=== PATIENT | male | born 1970 | race Caucasian/White ===

== ENCOUNTER 2019-01-27 00:15 | Inpatient (IN) | payer MEDICAID ==
[~2019-01-27] VITALS: Ht 167.6 cm; Wt 73.6 kg
[2019-01-27] MEDS ORDERED: AZITHROMYCIN 500 MG in SODIUM CHLORIDE 0.9% 250 ML IV ONE (00:30)
[2019-01-27] MEDS ORDERED: ALBUTEROL/IPRATROPIUM 2.5MG/0.5MG, 3 ML NPPB ONE (00:30)
[2019-01-27] MEDS ORDERED: SODIUM CHLORIDE 0.9% 1,000ML IVBOLUS ONE (00:30)
[2019-01-27] MEDS ORDERED: MAGNESIUM SULFATE PMX 2GM/50ML 50 ML IVPB ONE (00:30)
[2019-01-27] MEDS ORDERED: ALBUTEROL/IPRATROPIUM 2.5MG/0.5MG, 3 ML ONE (00:31)
[2019-01-27] MEDS ORDERED: methylPREDNISolone SOD SUCC 125 MG/2 ML ONE (00:50)
[2019-01-27] MEDS ORDERED: MAGNESIUM SULFATE PMX 2GM/50ML 50 ML ONE (00:50)
[2019-01-27 01:00] LABS: BASOPHILS # (AUTO) 0.02 x10^3/uL (0-0.1); BASOPHILS % (AUTO) 0 % (0-1); EOSINOPHILS # (AUTO) 0.52 x10^3/uL (0-0.4); EOSINOPHILS % (AUTO) 6 % (1-7); LYMPHOCYTES # (AUTO) 2.71 x10^3/uL (1-3.4); LYMPHOCYTES % (AUTO) 29 % (22-44); MD NO; MEAN CORPUSCULAR HEMOGLOBIN 30.2 pg (27.5-34.5); MEAN CORPUSCULAR VOLUME 91.4 fL (81-97); MEAN PLATELET VOLUME 7.8 fL (7.4-10.4); MONOCYTES # (AUTO) 0.78 x10^3/uL (0.2-0.8); MONOCYTES % (AUTO) 8 % (2-9); NEUTROPHILS # (AUTO) 5.31 x10^3/uL (1.8-6.8); NEUTROPHILS % (AUTO) 57 % (42-75); PLATELET COUNT 280 x10^3/uL (130-400); RED BLOOD COUNT 5.09 x10^6/uL (4.38-5.82); RED CELL DISTRIBUTION WIDTH 14.5 % (9.4-14.8)
[2019-01-27] MEDS ORDERED: methylPREDNISolone SOD SUCC 125 MG/2 ML IVPush ONE (01:00)
[2019-01-27] MEDS ORDERED: ALBUTEROL 0.5%, 20ML ONE (01:09)
[2019-01-27 01:10] LABS: ALBUMIN 3.8 g/dL (3.4-5.0); ANION GAP 3 mmol/L (5-15); CALCIUM 8.4 mg/dL (8.5-10.1); CHLORIDE 110 mmol/L (98-107); CREATININE 0.92 mg/dL (0.7-1.3)
--- NOTE | 2019-01-27 01:11 | NUR ---
PT FROM TRIAGE WITH LABOURED RESP, NEB BY RT PIV PLACED MEDS GIVEN PER MD ORDER REPORT TO ANAND SHANKAR
--- NOTE | 2019-01-27 02:36 | NUR ---
ASSUMING CARE OF PT AT THIS TIME. PT IS ASLEEP IN [facility] WITH NO ACUTE DISTRESS NOTED. VSS AT THIS TIME.
--- NOTE | 2019-01-27 03:18 | NUR ---
TP: toya at [facility] and jakob at [facility] both refused transfer of pt at their facilities.
[2019-01-27] MEDS ORDERED: ONDANSETRON 2MG/ML, 2ML IVPush PRN (03:30)
--- NOTE | 2019-01-27 03:35 | NUR ---
REPORT OF PT CALLED TO RAAD PE[facility]A. ALL QUESTIONS ANSWERED. TECH PAGED FOR TRANSPORT OF PT FROM ER TO FLOOR.
[2019-01-27 04:02] VITALS: BP 143/93
[2019-01-27] MEDS ORDERED: MONT4GRA PO (04:19)
[2019-01-27] MEDS ORDERED: ALBU1.25 NEB (04:21)
[2019-01-27 04:45] LABS: RAPID INFLUENZA A Negative (Negative); RAPID INFLUENZA B Negative (Negative)
[2019-01-27] MEDS ORDERED: ACETAMINOPHEN 325 MG TABLET ONE (04:46)
[2019-01-27] MEDS: ACETAMINOPHEN 325 MG TABLET PO PRN ×2 (04:48→11:16)
[2019-01-27] MEDS: ALBUTEROL/IPRATROPIUM 2.5MG/0.5MG, 3 ML NPPB SCH ×5 (06:00→21:55)
[2019-01-27] MEDS ORDERED: GUAIFENESIN 200 MG TABLET ONE (07:46)
[2019-01-27] MEDS: GUAIFENESIN 200 MG TABLET PO SCH ×4 (07:50→20:02)
[2019-01-27 08:14] VITALS: BP 146/75
[2019-01-27 08:40] LABS: AMPHETAMINE SCREEN, URINE Negative (Negative); BARBITURATE SCREEN, URINE Negative (Negative); BENZODIAZEPINE SCREEN, URINE Negative (Negative); CANNABINOID SCREEN, URINE Negative (Negative); COCAINE SCREEN, URINE Negative (Negative); METHADONE SCREEN, URINE Negative (Negative); OPIATE SCREEN, URINE Negative (Negative)
[2019-01-27 09:40] LABS: HCT (SEDRATE) 44.5 % (39.2-51.8)
[2019-01-27 13:51] VITALS: BP 152/81
[2019-01-27 19:46] VITALS: BP 131/69
[2019-01-27] MEDS: MONTELUKAST 10 MG TABLET PO SCH (20:02)
[2019-01-28 01:25] VITALS: BP 140/81
[2019-01-28] MEDS: ALBUTEROL/IPRATROPIUM 2.5MG/0.5MG, 3 ML NPPB SCH ×6 (02:11→22:00)
[2019-01-28] MEDS: AZITHROMYCIN 500 MG in SODIUM CHLORIDE 0.9% 250 ML IV SCH (02:20)
[2019-01-28] MEDS: ALBUTEROL/IPRATROPIUM 2.5MG/0.5MG, 3 ML NPPB PRN (03:45)
[2019-01-28 03:57] LABS: BASOPHILS # (AUTO) 0.03 x10^3/uL (0-0.1); BASOPHILS % (AUTO) 0 % (0-1); EOSINOPHILS # (AUTO) 0.07 x10^3/uL (0-0.4); EOSINOPHILS % (AUTO) 1 % (1-7); LYMPHOCYTES % (AUTO) 14 % (22-44); MD NO; MEAN CORPUSCULAR HEMOGLOBIN 29.7 pg (27.5-34.5); MEAN CORPUSCULAR HGB CONC 32.5 g/dL (33.2-36.2); MEAN CORPUSCULAR VOLUME 91.3 fL (81-97); MONOCYTES # (AUTO) 0.89 x10^3/uL (0.2-0.8); MONOCYTES % (AUTO) 6 % (2-9); NEUTROPHILS # (AUTO) 12.07 x10^3/uL (1.8-6.8); NEUTROPHILS % (AUTO) 79 % (42-75); PLATELET COUNT 268 x10^3/uL (130-400); RED BLOOD COUNT 4.46 x10^6/uL (4.38-5.82); RED CELL DISTRIBUTION WIDTH 14.5 % (9.4-14.8)
[2019-01-28 04:06] LABS: ANION GAP 7 mmol/L (5-15); CALCIUM 8.1 mg/dL (8.5-10.1); CHLORIDE 111 mmol/L (98-107); CREATININE 0.77 mg/dL (0.7-1.3)
[2019-01-28] MEDS: GUAIFENESIN 200 MG TABLET PO SCH ×4 (06:20→20:30)
[2019-01-28 07:12] VITALS: BP 133/77
[2019-01-28] MEDS ORDERED: AZITHROMYCIN 500 MG in SODIUM CHLORIDE 0.9% 250 ML IV SCH (08:00)
[2019-01-28 13:20] VITALS: BP 145/83
[2019-01-28] MEDS: ACETAMINOPHEN 325 MG TABLET PO PRN (18:21)
[2019-01-28 19:54] VITALS: BP 121/73
[2019-01-28] MEDS: MONTELUKAST 10 MG TABLET PO SCH (20:30)
[2019-01-29 00:52] VITALS: BP 124/76
[2019-01-29] MEDS: AZITHROMYCIN 500 MG in SODIUM CHLORIDE 0.9% 250 ML IV SCH (01:52)
[2019-01-29] MEDS: ALBUTEROL/IPRATROPIUM 2.5MG/0.5MG, 3 ML NPPB SCH ×6 (02:00→22:00)
[2019-01-29] MEDS: GUAIFENESIN 200 MG TABLET PO SCH ×4 (05:11→20:56)
[2019-01-29 07:11] VITALS: BP 129/81
[2019-01-29] MEDS: ACETAMINOPHEN 325 MG TABLET PO PRN ×2 (08:19→16:54)
[2019-01-29] MEDS: ALBUTEROL/IPRATROPIUM 2.5MG/0.5MG, 3 ML NPPB PRN (08:40)
[2019-01-29 09:25] LABS: BASOPHILS # (AUTO) 0.03 x10^3/uL (0-0.1); BASOPHILS % (AUTO) 0 % (0-1); EOSINOPHILS # (AUTO) 0.23 x10^3/uL (0-0.4); EOSINOPHILS % (AUTO) 2 % (1-7); LYMPHOCYTES # (AUTO) 3.39 x10^3/uL (1-3.4); LYMPHOCYTES % (AUTO) 27 % (22-44); MD NO; MEAN CORPUSCULAR HEMOGLOBIN 29.7 pg (27.5-34.5); MEAN CORPUSCULAR HGB CONC 33.3 g/dL (33.2-36.2); MEAN CORPUSCULAR VOLUME 89.3 fL (81-97); MEAN PLATELET VOLUME 7.4 fL (7.4-10.4); MONOCYTES # (AUTO) 0.91 x10^3/uL (0.2-0.8); MONOCYTES % (AUTO) 7 % (2-9); NEUTROPHILS # (AUTO) 8.19 x10^3/uL (1.8-6.8); NEUTROPHILS % (AUTO) 64 % (42-75); PLATELET COUNT 282 x10^3/uL (130-400); RED BLOOD COUNT 4.66 x10^6/uL (4.38-5.82); RED CELL DISTRIBUTION WIDTH 14.5 % (9.4-14.8)
[2019-01-29 09:36] LABS: ANION GAP 5 mmol/L (5-15); CALCIUM 8.4 mg/dL (8.5-10.1); CHLORIDE 109 mmol/L (98-107); CREATININE 0.81 mg/dL (0.7-1.3)
[2019-01-29 12:55] VITALS: BP 120/75
[2019-01-29 19:51] VITALS: BP 129/89
[2019-01-29] MEDS: MONTELUKAST 10 MG TABLET PO SCH (20:55)
[2019-01-30 01:15] VITALS: BP 140/83
[2019-01-30] MEDS: AZITHROMYCIN 500 MG in SODIUM CHLORIDE 0.9% 250 ML IV SCH (01:53)
[2019-01-30] MEDS: ALBUTEROL/IPRATROPIUM 2.5MG/0.5MG, 3 ML NPPB SCH ×5 (02:00→20:40)
[2019-01-30] MEDS: GUAIFENESIN 200 MG TABLET PO SCH ×4 (05:14→21:00)
[2019-01-30] MEDS ORDERED: MAGNESIUM SULFATE PMX 2GM/50ML 50 ML IV ONE (07:00)
[2019-01-30] MEDS ORDERED: methylPREDNISolone SOD SUCC 125 MG/2 ML IV ONE (07:00)
[2019-01-30 07:56] VITALS: BP 143/89
[2019-01-30] MEDS: ACETAMINOPHEN 325 MG TABLET PO PRN ×2 (07:59→17:00)
[2019-01-30 14:29] VITALS: BP 131/86
[2019-01-30 19:37] VITALS: BP 119/67
[2019-01-30] MEDS ORDERED: SODIUM CHLORIDE NASAL SPRAY 45ML BOTTLE NAS PRN (20:30)
[2019-01-30] MEDS ORDERED: DIPHENHYDRAMINE 25 MG CAPSULE PO ONE (20:30)
[2019-01-30] MEDS: MONTELUKAST 10 MG TABLET PO SCH (21:00)
[2019-01-31] MEDS: AZITHROMYCIN 500 MG in SODIUM CHLORIDE 0.9% 250 ML IV SCH (01:54)
[2019-01-31 02:06] VITALS: BP 137/87
[2019-01-31] MEDS: GUAIFENESIN 200 MG TABLET PO SCH ×4 (05:26→20:15)
[2019-01-31 06:36] VITALS: BP 154/93
[2019-01-31 07:04] LABS: MEAN CORPUSCULAR HEMOGLOBIN 29.5 pg (27.5-34.5); MEAN CORPUSCULAR HGB CONC 32.7 g/dL (33.2-36.2); MEAN CORPUSCULAR VOLUME 90.5 fL (81-97); MEAN PLATELET VOLUME 7.4 fL (7.4-10.4); PLATELET COUNT 342 x10^3/uL (130-400); RED BLOOD COUNT 4.89 x10^6/uL (4.38-5.82); RED CELL DISTRIBUTION WIDTH 14.5 % (9.4-14.8)
[2019-01-31] MEDS: ALBUTEROL/IPRATROPIUM 2.5MG/0.5MG, 3 ML NPPB SCH ×4 (07:10→19:43)
[2019-01-31 07:11] LABS: ALBUMIN 3.3 g/dL (3.4-5.0); ANION GAP 5 mmol/L (5-15); CALCIUM 8.6 mg/dL (8.5-10.1); CHLORIDE 108 mmol/L (98-107); CREATININE 0.84 mg/dL (0.7-1.3)
[2019-01-31 09:45] LABS: BASOPHILS # (AUTO) 0.03 x10^3/uL (0-0.1); BASOPHILS % (AUTO) 0 % (0-1); EOSINOPHILS # (AUTO) 0.05 x10^3/uL (0-0.4); EOSINOPHILS % (AUTO) 0 % (1-7); LYMPHOCYTES # (AUTO) 2.92 x10^3/uL (1-3.4); LYMPHOCYTES % (AUTO) 15 % (22-44); MD SCAN; MONOCYTES # (AUTO) 1.18 x10^3/uL (0.2-0.8); MONOCYTES % (AUTO) 6 % (2-9); NEUTROPHILS # (AUTO) 15.48 x10^3/uL (1.8-6.8); NEUTROPHILS % (AUTO) 79 % (42-75)
[2019-01-31] MEDS ORDERED: methylPREDNISolone SOD SUCC 125 MG/2 ML IVPush ONE (10:00)
[2019-01-31] MEDS ORDERED: MAGNESIUM SULFATE PMX 2GM/50ML 50 ML IV ONE (10:00)
[2019-01-31 12:20] VITALS: BP 137/86
[2019-01-31] MEDS: ACETAMINOPHEN 325 MG TABLET PO PRN (17:43)
[2019-01-31] MEDS: MONTELUKAST 10 MG TABLET PO SCH (20:15)
[2019-01-31 20:24] VITALS: BP 130/81
[2019-02-01] MEDS: ACETAMINOPHEN 325 MG TABLET PO PRN ×4 (00:24→23:05)
[2019-02-01 02:05] VITALS: BP 134/74
[2019-02-01] MEDS: AZITHROMYCIN 500 MG in SODIUM CHLORIDE 0.9% 250 ML IV SCH (02:23)
[2019-02-01] MEDS: GUAIFENESIN 200 MG TABLET PO SCH ×4 (05:07→20:06)
[2019-02-01] MEDS: ALBUTEROL/IPRATROPIUM 2.5MG/0.5MG, 3 ML NPPB SCH ×4 (07:00→19:33)
[2019-02-01 07:39] VITALS: BP 146/85
[2019-02-01] MEDS: BUDESONIDE 0.5 MG/2 ML INHA HHN SCH ×2 (11:30→19:33)
[2019-02-01] MEDS: methylPREDNISolone SOD SUCC 40 MG/ML IV SCH ×2 (12:03→20:06)
[2019-02-01 13:50] VITALS: BP 151/76
[2019-02-01 18:30] VITALS: BP 160/94
[2019-02-01] MEDS: MONTELUKAST 10 MG TABLET PO SCH (20:06)
[2019-02-02 00:36] VITALS: BP 128/80
[2019-02-02] MEDS: methylPREDNISolone SOD SUCC 40 MG/ML IV SCH ×3 (04:10→20:02)
[2019-02-02] MEDS: GUAIFENESIN 200 MG TABLET PO SCH ×4 (05:22→20:03)
[2019-02-02 06:37] VITALS: BP 136/86
[2019-02-02] MEDS: ALBUTEROL/IPRATROPIUM 2.5MG/0.5MG, 3 ML NPPB SCH ×4 (06:42→13:39)
[2019-02-02] MEDS: BUDESONIDE 0.5 MG/2 ML INHA HHN SCH ×2 (06:42→10:52)
[2019-02-02] MEDS: ACETAMINOPHEN 325 MG TABLET PO PRN ×2 (08:47→16:49)
[2019-02-02] MEDS: SENNA/DOCUSATE TABLET PO SCH (10:26)
[2019-02-02 10:56] LABS: MEAN CORPUSCULAR HEMOGLOBIN 29.7 pg (27.5-34.5); MEAN CORPUSCULAR HGB CONC 32.9 g/dL (33.2-36.2); MEAN CORPUSCULAR VOLUME 90.3 fL (81-97); MEAN PLATELET VOLUME 7.4 fL (7.4-10.4); PLATELET COUNT 433 x10^3/uL (130-400); RED BLOOD COUNT 5.05 x10^6/uL (4.38-5.82); RED CELL DISTRIBUTION WIDTH 14.1 % (9.4-14.8)
[2019-02-02 11:12] LABS: MD YES
[2019-02-02 11:13] LABS: BAND#(MANUAL) 0.29 x10^3/uL; BANDS%(MANUAL) 1 % (0-7); LYMPH#(MANUAL) 2.87 x10^3/uL (1-3.4); LYMPHS% (MANUAL) 10 % (22-44); MONOS#(MANUAL) 2.87 x10^3/uL (0.3-2.7); MONOS% (MANUAL) 10 % (2-9); SEG#(MANUAL) 22.67 x10^3/uL (1.8-6.8); SEGS% (MANUAL) 79 % (42-75)
[2019-02-02 11:14] LABS: <PLATELET ESTIMATE> INCREASED; <PLT MORPHOLOGY> NORMAL PLT MORPH; <RBC MORPHOLOGY> NORMAL
[2019-02-02 13:17] VITALS: BP 147/87
[2019-02-02] MEDS ORDERED: FLU VAC QS 19-20(4YR UP)CEL/PF 0.5 ML IM-VACC ONE (15:30)
[2019-02-02] MEDS ORDERED: FLU VACC QS2019-20 36MOS UP/PF 0.5 ML IM-VACC ONE (15:30)
[2019-02-02] MEDS: NICOTINE 7 MG/24 HR PATCH.TD24 TD SCH (18:27)
[2019-02-02 18:48] VITALS: BP 127/83
[2019-02-02] MEDS: MONTELUKAST 10 MG TABLET PO SCH (20:02)
[2019-02-02] MEDS: CEFTRIAXONE PMX 1GM/50ML 50 ML IV SCH (20:19)
[2019-02-02] MEDS: DOXYCYCLINE 100 MG in DEXTROSE 5% 250 ML IV SCH (21:22)
[2019-02-03 01:23] VITALS: BP 131/80
[2019-02-03] MEDS: methylPREDNISolone SOD SUCC 40 MG/ML IV SCH ×3 (03:23→19:30)
[2019-02-03 05:49] LABS: ANION GAP 8 mmol/L (5-15); CALCIUM 8.9 mg/dL (8.5-10.1); CHLORIDE 104 mmol/L (98-107)
[2019-02-03 05:51] LABS: MEAN CORPUSCULAR HEMOGLOBIN 29.6 pg (27.5-34.5); MEAN CORPUSCULAR HGB CONC 32.3 g/dL (33.2-36.2); MEAN CORPUSCULAR VOLUME 91.9 fL (81-97); MEAN PLATELET VOLUME 7.6 fL (7.4-10.4); PLATELET COUNT 377 x10^3/uL (130-400); RED BLOOD COUNT 4.79 x10^6/uL (4.38-5.82); RED CELL DISTRIBUTION WIDTH 14.5 % (9.4-14.8)
[2019-02-03 05:52] LABS: CREATININE 0.81 mg/dL (0.7-1.3)
[2019-02-03] MEDS: GUAIFENESIN 200 MG TABLET PO SCH ×4 (06:06→20:25)
[2019-02-03 06:15] LABS: BASOPHILS # (AUTO) 0.02 x10^3/uL (0-0.1); BASOPHILS % (AUTO) 0 % (0-1); EOSINOPHILS % (AUTO) 0 % (1-7); LYMPHOCYTES # (AUTO) 2.17 x10^3/uL (1-3.4); LYMPHOCYTES % (AUTO) 10 % (22-44); MD SCAN; MONOCYTES # (AUTO) 0.81 x10^3/uL (0.2-0.8); MONOCYTES % (AUTO) 4 % (2-9); NEUTROPHILS # (AUTO) 19.56 x10^3/uL (1.8-6.8); NEUTROPHILS % (AUTO) 87 % (42-75)
[2019-02-03] MEDS: ACETAMINOPHEN 325 MG TABLET PO PRN ×2 (06:40→21:31)
[2019-02-03] MEDS: BUDESONIDE 0.5 MG/2 ML INHA HHN SCH ×2 (06:46→20:23)
[2019-02-03] MEDS: ALBUTEROL/IPRATROPIUM 2.5MG/0.5MG, 3 ML NPPB SCH ×4 (06:46→20:23)
[2019-02-03] MEDS: SENNA/DOCUSATE TABLET PO SCH (08:55)
[2019-02-03] MEDS: DOXYCYCLINE 100 MG in DEXTROSE 5% 250 ML IV SCH ×3 (08:56→23:00)
[2019-02-03 09:01] VITALS: BP 136/84
[2019-02-03 12:34] VITALS: BP 154/82
[2019-02-03] MEDS: BENZONATATE 100 MG CAPSULE PO SCH ×2 (15:16→20:26)
[2019-02-03] MEDS: NICOTINE 7 MG/24 HR PATCH.TD24 TD SCH (17:54)
[2019-02-03 19:49] VITALS: BP 159/95
[2019-02-03] MEDS: MONTELUKAST 10 MG TABLET PO SCH (20:26)
[2019-02-03] MEDS: CEFTRIAXONE PMX 1GM/50ML 50 ML IV SCH (21:31)
[2019-02-04 01:04] VITALS: BP 140/87
[2019-02-04] MEDS: methylPREDNISolone SOD SUCC 40 MG/ML IV SCH ×3 (03:19→20:05)
[2019-02-04 04:59] LABS: MEAN CORPUSCULAR HEMOGLOBIN 29.3 pg (27.5-34.5); MEAN CORPUSCULAR HGB CONC 32.3 g/dL (33.2-36.2); MEAN CORPUSCULAR VOLUME 90.8 fL (81-97); MEAN PLATELET VOLUME 7.4 fL (7.4-10.4); PLATELET COUNT 419 x10^3/uL (130-400); RED CELL DISTRIBUTION WIDTH 14.6 % (9.4-14.8)
[2019-02-04 05:09] LABS: ANION GAP 6 mmol/L (5-15); CALCIUM 8.8 mg/dL (8.5-10.1); CHLORIDE 104 mmol/L (98-107)
[2019-02-04] MEDS: GUAIFENESIN 200 MG TABLET PO SCH ×4 (05:09→20:06)
[2019-02-04 05:10] LABS: CREATININE 1.09 mg/dL (0.7-1.3)
[2019-02-04] MEDS: ALBUTEROL/IPRATROPIUM 2.5MG/0.5MG, 3 ML NPPB SCH ×3 (05:22→10:15)
[2019-02-04 05:50] LABS: MD YES
[2019-02-04 05:51] LABS: <PLATELET ESTIMATE> ADEQUATE; <PLT MORPHOLOGY> NORMAL PLT MORPH; <RBC MORPHOLOGY> NORMAL; BANDS%(MANUAL) 2 % (0-7); LYMPH#(MANUAL) 2.26 x10^3/uL (1-3.4); LYMPHS% (MANUAL) 9 % (22-44); MONOS% (MANUAL) 4 % (2-9); MYELOCYTES# (MANUAL) 0.25 x10^3/uL (0-0); MYELOCYTES% (MANUAL) 1 % (0-0); SEG#(MANUAL) 21.08 x10^3/uL (1.8-6.8); SEGS% (MANUAL) 84 % (42-75)
[2019-02-04 07:56] VITALS: BP 151/81
[2019-02-04] MEDS: BENZONATATE 100 MG CAPSULE PO SCH ×3 (08:11→20:06)
[2019-02-04] MEDS: SENNA/DOCUSATE TABLET PO SCH (08:11)
[2019-02-04] MEDS ORDERED: ALUMINUM/MAG/SIMETHICONE 30 ML UDC PO PRN (09:00)
[2019-02-04] MEDS ORDERED: POLYETHYLENE GLYCOL 17 GM PACKET PO PRN (09:00)
[2019-02-04] MEDS: BUDESONIDE 0.5 MG/2 ML INHA HHN SCH ×2 (10:16→23:30)
[2019-02-04] MEDS: DOXYCYCLINE 100 MG in DEXTROSE 5% 250 ML IV SCH ×2 (11:05→23:52)
[2019-02-04 13:25] VITALS: BP 146/90
[2019-02-04] MEDS: ALBUTEROL/IPRATROPIUM 2.5MG/0.5MG, 3 ML NPPB PRN (16:51)
[2019-02-04] MEDS: NICOTINE 7 MG/24 HR PATCH.TD24 TD SCH (18:39)
[2019-02-04] MEDS: MONTELUKAST 10 MG TABLET PO SCH (20:06)
[2019-02-04] MEDS: CEFTRIAXONE PMX 1GM/50ML 50 ML IV SCH (20:06)
[2019-02-04 20:24] VITALS: BP 140/80
[2019-02-05 02:29] VITALS: BP 125/77
[2019-02-05] MEDS: methylPREDNISolone SOD SUCC 40 MG/ML IV SCH (03:27)
[2019-02-05] MEDS: GUAIFENESIN 200 MG TABLET PO SCH (05:43)
[2019-02-05 06:37] LABS: MEAN CORPUSCULAR HEMOGLOBIN 29.4 pg (27.5-34.5); MEAN CORPUSCULAR HGB CONC 32.6 g/dL (33.2-36.2); MEAN CORPUSCULAR VOLUME 90.3 fL (81-97); MEAN PLATELET VOLUME 7.2 fL (7.4-10.4); PLATELET COUNT 331 x10^3/uL (130-400); RED CELL DISTRIBUTION WIDTH 14.3 % (9.4-14.8)
[2019-02-05] MEDS: BUDESONIDE 0.5 MG/2 ML INHA HHN SCH (06:41)
[2019-02-05] MEDS: ALBUTEROL/IPRATROPIUM 2.5MG/0.5MG, 3 ML NPPB PRN (06:41)
[2019-02-05 06:47] LABS: MD YES
[2019-02-05 06:48] LABS: <PLATELET ESTIMATE> ADEQUATE; <PLT MORPHOLOGY> NORMAL PLT MORPH; <RBC MORPHOLOGY> NORMAL; LYMPHS% (MANUAL) 13 % (22-44); MONOS#(MANUAL) 0.28 x10^3/uL (0.3-2.7); MONOS% (MANUAL) 1 % (2-9); SEG#(MANUAL) 23.82 x10^3/uL (1.8-6.8); SEGS% (MANUAL) 86 % (42-75)
[2019-02-05 06:49] LABS: ANION GAP 5 mmol/L (5-15); CALCIUM 8.9 mg/dL (8.5-10.1); CHLORIDE 104 mmol/L (98-107); CREATININE 0.95 mg/dL (0.7-1.3)
[2019-02-05 07:07] VITALS: BP 131/91
[2019-02-05] MEDS ORDERED: ALBU8.5H8 INH (07:44)
[2019-02-05] MEDS ORDERED: DOXY100T PO (07:44)
[2019-02-05] MEDS ORDERED: PRED20TA PO (07:44)
[2019-02-05] MEDS ORDERED: BUDE10.22 INH (07:44)
[2019-02-05] MEDS ORDERED: CEFD300C37 PO (07:44)
[2019-02-05] MEDS: SENNA/DOCUSATE TABLET PO SCH (07:53)
[2019-02-05] MEDS: BENZONATATE 100 MG CAPSULE PO SCH (07:53)
== END 2019-02-05 08:26 | disposition home health service (06) | DRG 193 ==
LOC: ED 02:53 → EDIP 02:54 → ED 03:11 → 4WST 03:51
PROVIDERS: ADMIT Internal Medicine; ATTEND Internal Medicine
DX: J18.9 Pneumonia, unspecified organism (principal); J96.01 Acute respiratory failure with hypoxia; J45.21 Mild intermittent asthma with (acute) exacerbation; Z99.11 Dependence on respirator [ventilator] status; F17.210 Nicotine dependence, cigarettes, uncomplicated; I10 Essential (primary) hypertension; J06.9 Acute upper respiratory infection, unspecified; T38.0X5A Adverse effect of glucocorticoids and synthetic analogues, initial encounter; Y92.89 Other specified places as the place of occurrence of the external cause
CPT/HCPCS: 36415; 36600; 84145; 87400; 96365; 96366; 96375; 99285; J7611; J7620; J7626; 71045; 71250; 80048; 80069; 80307; 82040; 82803; 83735; 85025; 85651; 86140; 87040; 87070; 87205; 87633; 90686; 93005; 94640; 94644; G0378; J0456; J0696; J7060; J2920; J2930; J3475; J7030; J7050; J7512; Q0163

== ENCOUNTER 2019-10-09 18:40 | Emergency (ER) | payer MEDICAID ==
[~2019-10-09] VITALS: Ht 167.6 cm; Wt 78.7 kg
[~2019-10-09 18:40] MED LIST: ALBU1.25 NEB; ALBU8.5H8 INH; BUDE10.22 INH; CEFD300C37 PO; DOXY100T PO; MONT4GRA PO; PRED20TA PO
== END 2019-10-09 20:19 | disposition home or self-care (01) ==
LOC: ED 20:08
DX: J45.909 Unspecified asthma, uncomplicated (principal); Z76.0 Encounter for issue of repeat prescription
CPT/HCPCS: 99281

== ENCOUNTER 2019-11-03 08:32 | Emergency (ER) | payer MEDICAID ==
[~2019-11-03] VITALS: Ht 167.6 cm; Wt 79.6 kg
[2019-11-03] MEDS ORDERED: ALBUTEROL/IPRATROPIUM 2.5MG/0.5MG, 3 ML NPPB SCH (09:00)
[2019-11-03] MEDS ORDERED: ALBUTEROL/IPRATROPIUM 2.5MG/0.5MG, 3 ML ONE (09:22)
--- NOTE | 2019-11-03 09:38 | NUR ---
SOB INCREASING OVER LAST FEW DAYS. RAN OUT OF ALBUTEROL. CHEST PRESSURE.
[2019-11-03 10:15] LABS: ALBUMIN 4.3 g/dL (3.4-5.0); ANION GAP 9 mmol/L (5-15); CALCIUM 8.5 mg/dL (8.5-10.1); CHLORIDE 108 mmol/L (98-107)
[2019-11-03 10:18] LABS: ALANINE AMINOTRANSFERASE 35 U/L (12-78); ALKALINE PHOSPHATASE 69 U/L (45-117); BILIRUBIN,TOTAL 0.4 mg/dL (0.2-1.0); CREATININE 0.87 mg/dL (0.7-1.3); TOTAL PROTEIN 7.5 g/dL (6.4-8.2)
--- NOTE | 2019-11-03 10:44 | NUR ---
AFTER BREATHING TX COMPLETED PT AWAITING VASCULAR STUDY
--- NOTE | 2019-11-03 11:26 | NUR ---
RESTING WITH EYES CLOSED. AWAITING LAB REDRAW.
[2019-11-03 11:27] VITALS: BP 154/94
[2019-11-03 12:03] LABS: BASOPHILS # (AUTO) 0.03 x10^3/uL (0-0.1); BASOPHILS % (AUTO) 0 % (0-1); EOSINOPHILS # (AUTO) 0.28 x10^3/uL (0-0.4); EOSINOPHILS % (AUTO) 3 % (1-7); LYMPHOCYTES # (AUTO) 1.42 x10^3/uL (1-3.4); LYMPHOCYTES % (AUTO) 16 % (22-44); MD NO; MEAN CORPUSCULAR HEMOGLOBIN 29.4 pg (27.5-34.5); MEAN CORPUSCULAR HGB CONC 33.3 g/dL (33.2-36.2); MEAN CORPUSCULAR VOLUME 88.3 fL (81-97); MEAN PLATELET VOLUME 7.8 fL (7.4-10.4); MONOCYTES # (AUTO) 0.18 x10^3/uL (0.2-0.8); MONOCYTES % (AUTO) 2 % (2-9); NEUTROPHILS # (AUTO) 6.72 x10^3/uL (1.8-6.8); NEUTROPHILS % (AUTO) 78 % (42-75); PLATELET COUNT 284 x10^3/uL (130-400); RED BLOOD COUNT 5.34 x10^6/uL (4.38-5.82); RED CELL DISTRIBUTION WIDTH 14.4 % (9.4-14.8)
== END 2019-11-03 13:08 | disposition home or self-care (01) ==
LOC: ED 11:00
DX: J45.31 Mild persistent asthma with (acute) exacerbation (principal); Z88.0 Allergy status to penicillin
CPT/HCPCS: 36415; 71046; 76882; 80053; 85025; 93005; 94640; 99285; J7512